=== PATIENT | male | born 1950 | race Caucasian/White ===

== ENCOUNTER 2018-11-02 06:19 | Day surgery (SDC) | payer OTHER ==
[2018-11-02] MEDS ORDERED: SOD CHLORIDE 0.9% 1,000 ML IV (07:30)
[2018-11-02] MEDS: MOXIFLOXACIN 0.5% 3 ML OPH OPER (07:40)
[2018-11-02] MEDS: CYCLOPENTOLATE/PHENYLEPH 2 ML OPH OPER (07:40)
[2018-11-02] MEDS: TROPICAMIDE 1% 15 ML OPH OPER (07:41)
[2018-11-02] MEDS: DICLOFENAC 0.1% 2.5 ML OPH OPER (07:41)
[2018-11-02] MEDS ORDERED: LIDOCAINE 4% (MPF) 5 ML INJ (08:16)
[2018-11-02] MEDS: DEXAMETHASONE 4 MG/ML 1 ML INJ (08:16)
[2018-11-02] MEDS ORDERED: NA HYALURONATE/CHONDROITIN 0.5 ML SYG (08:16)
[2018-11-02] MEDS: CEFAZOLIN 1 GM INJ (08:16)
[2018-11-02] MEDS: CARBACHOL 0.01% 1.5 ML OPH INJ (08:16)
[2018-11-02] MEDS ORDERED: hydrALAzine 20 MG INJ IV (08:30)
[2018-11-02] MEDS ORDERED: EPHEDrine SULFATE 50 MG/5 ML SYG IV (08:30)
[2018-11-02] MEDS ORDERED: METOCLOPRAMIDE 10 MG INJ IV (08:30)
[2018-11-02] MEDS ORDERED: OXYCODONE/ACETAMINOPHEN (5/325) TAB PO (08:30)
[2018-11-02] MEDS ORDERED: ONDANSETRON 4 MG INJ IV (08:30)
[2018-11-02] MEDS ORDERED: HYDROmorphONE 1 MG/5 ML IV SYRINGE IV ×2 (08:30)
[2018-11-02] MEDS ORDERED: LABETALOL HCL 20MG INJ IV (08:30)
[2018-11-02] MEDS ORDERED: FENTAnyl 50 MCG/ML VIAL IV ×2 (08:30)
[2018-11-02] MEDS ORDERED: PROPOFOL 20 ML (08:46)
[2018-11-02] MEDS ORDERED: ONDANSETRON 4 MG INJ (08:46)
[2018-11-02] MEDS ORDERED: METOCLOPRAMIDE 10 MG INJ (08:46)
[2018-11-02 08:54] LABS: INR 0.86; PARTIAL THROMBOPLASTIN TIME 30.1 Sec (23.0-35.0); PROTIME 11.8 Sec (11.9-14.9); PT RATIO 0.9
== END 2018-11-02 10:20 | disposition home or self-care (01) ==
LOC: SDS 06:19
DX: H25.11 Age-related nuclear cataract, right eye (principal); I10 Essential (primary) hypertension; E11.9 Type 2 diabetes mellitus without complications; Z79.82 Long term (current) use of aspirin
CPT/HCPCS: 66984; 82962; 85610; 85730